=== PATIENT | male | born 1990 | race Asian ===

== ENCOUNTER 2017-09-26 01:29 | Emergency (ER) | payer SELFPAY ==
[~2017-09-26] VITALS: Ht 177.8 cm; Wt 71.7 kg
[2017-09-26 01:41] VITALS: BP 116/76; Ht 177.8 cm; Wt 71.7 kg
== END 2017-09-26 02:19 | disposition home or self-care (01) ==
LOC: ED 01:29
DX: Z04.1 Encounter for examination and observation following transport accident (principal)